=== PATIENT | female | born 1950 ===

== ENCOUNTER 2020-07-28 18:38 | Emergency (ER) | payer OTHER ==
[~2020-07-28] VITALS: Ht 165.1 cm; Wt 69.4 kg
[~2020-07-28 18:38] MED LIST: ACET-7740 PO
[2020-07-28 18:51] VITALS: BP 143/71
--- NOTE | 2020-07-28 20:09 | NUR ---
PT COMING IN WITH C/O RIGHT SHOULDER PAIN WHICH RADIATES INTO UPPER ARM DOWN TO ELBOW POST FALL 5 DAYS AGO. PT UNABLE TO MOVE DUE TO PAIN. NO DEFORMITITES NOTED, PT ABLE TO MOVE FINGERS WITHOUT DIFFICULTY OR PAIN, PALPABLE RADIAL PULSE. PT PLACED IN BED, BED IN LOWEST POSITION AND SIDERAIL UP X 1. NKA NO HX
[2020-07-28] MEDS ORDERED: KETOROLAC 30 MG/ML VIAL IM ONE (20:15)
--- NOTE | 2020-07-28 20:17 | NUR ---
PT PLACED IN GOWN FOR X-RAY PROCEDURE
--- NOTE | 2020-07-28 20:25 | NUR ---
X-RAY AT BEDSIDE
--- NOTE | 2020-07-28 21:00 | NUR ---
SLING SIZE LARGE PLACED ON PT R ARM, FASTENED TO SIZE
[2020-07-28 22:09] VITALS: BP 128/70
== END 2020-07-28 22:10 | disposition home or self-care (01) ==
LOC: MED 18:38
DX: S43.401A Unspecified sprain of right shoulder joint, initial encounter (principal); Z79.899 Other long term (current) drug therapy; Z90.49 Acquired absence of other specified parts of digestive tract; W19.XXXA Unspecified fall, initial encounter; Y93.89 Activity, other specified; Y92.89 Other specified places as the place of occurrence of the external cause; Y99.8 Other external cause status
CPT/HCPCS: 73030; 73080; 96372; 99284; J1885